=== PATIENT | male | born 1995 | race Caucasian/White ===

== ENCOUNTER → 2019-03-21 | Outpatient (CLI) | payer OTHER | LOC: RAD 17:02 | DX: J45.909 Unspecified asthma, uncomplicated (principal) ==

== ENCOUNTER → 2019-11-15 | Outpatient (CLI) | payer OTHER ==
[2019-11-15 10:33] LABS: EOS # 0.3 (0.04-0.40); EOS % 3.2 % (0.0-4.0); HEMATOCRIT 49.9 % (42.0-52.0); HEMOGLOBIN 16.6 g/dL (13.5-18.0); LYMPH# 3.1 (1.50-4.00); MEAN CELL VOLUME 89 fl (78-100); MEAN CORPUSCULAR HEMOGLOBIN 30 pg (27-31); MEAN CORPUSCULAR HGB CONC 33 g/dL (33-37); MEAN PLATELET VOLUME 8.9 fl (7.4-10.4); MONO # 0.5 (0.20-0.80); NEU # 4.4 (1.40-6.50); PLATELET COUNT 264 K/mm3 (130-400); RED BLOOD COUNT 5.61 M/mm3 (4.20-5.60); RED CELL DISTRIBUTION WIDTH 12.8 % (11.5-14.5); WHITE BLOOD COUNT 8.2 K/mm3 (4.8-10.8)
[2019-11-17 06:45] LABS: BAKERS YEAST ALLERGEN COUNT 1.14 kU/L (()); EGG WHITE ALLERGEN COUNT <0.10 kU/L (()); MILK ALLERGEN COUNT 0.17 kU/L (()); SOYBEAN ALLERGEN COUNT 0.13 kU/L (())
[2019-11-17 06:46] LABS: ALTERNARIA TENUIS CNT 7.27 kU/L (()); ASPERGILLUS FUMIGATUS AL COUNT 0.75 kU/L (()); CANDIDA ALBICANS ALLERGN COUNT 1.59 kU/L (()); CLADOSPORIUM ALLERGEN COUNT 0.63 kU/L (()); EPICOCCUM PURPURANCEN AL COUNT 3.12 kU/L (()); FUSARIUM MONILIFORME ALL COUNT 1.74 kU/L (()); MUCOR RACEMOSUS ALLERGEN COUNT 0.27 kU/L (()); ORANGE ALLERGEN COUNT <0.10 kU/L (()); PEANUT ALLERGEN COUNT 0.12 kU/L (()); PENICILLIUM NOTATUM ALLR COUNT 0.19 kU/L (()); PHOMA BETAE ALLERGEN COUNT 2.51 kU/L (()); RICE ALLERGEN COUNT <0.10 kU/L (()); STEMPHYLIUM BOTRYOSUM AL COUNT 4.29 kU/L (()); STRAWBERRY ALLERGEN COUNT 1.09 kU/L (()); WHEAT ALLERGEN COUNT 0.25 kU/L (())
== END ==
LOC: LAB 10:10
PROVIDERS: Family Medicine
DX: T78.40XA Allergy, unspecified, initial encounter (principal)